=== PATIENT | male | born 1965 | race Caucasian/White ===

== ENCOUNTER → 2017-08-07 15:18 | Outpatient (CLI) | payer BC, SELFPAY ==
--- NOTE | 2017-08-07 15:22 | US_ITS ---
Exam: Limited superficial ultrasound of the abdominal wall. HISTORY: Palpable masses. COMPARISON: None FINDINGS: No definite abnormalities are found in any of the areas of clinical concern. No soft tissue masses. No fluid collections. Grossly normal tissue planes. IMPRESSION: No definite focal abnormality. Electronically Signed: Warren Prajapati MD at 23:48 EDT , Service support , US/Abdomen Limited
== END ==
PROVIDERS: Family Provider Family Medicine; PCP Family Medicine; Visit Provider Family Medicine
DX: R22.2 Localized swelling, mass and lump, trunk (principal)
CPT/HCPCS: 76705

== ENCOUNTER 2017-12-23 15:12 | Emergency (ER) | payer BC, SELFPAY ==
[2017-12-23 15:14] VITALS: BP 173/89; PULSE 90; RESP 18; TEMP 36.8; O2SAT 91; BMI 35.4
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
[2017-12-23 16:14] LABS: Hematocrit 43.9 % (40-54); Hemoglobin 14.2 g/dl (13.0-16.5); Mean Corp Hgb Conc 32.3 g/gl (32-36); Mean Corpuscular Hgb 31.1 pg (27.0-32.0); Mean Corpuscular Volume 96.1 fL (80-94); Mean Platelet Vol. 10.7 fl (6.2-12.0); Platelet Count 217 K/mm3 (150-450); RBC Distribution Width CV 13.2 % (11.6-14.6); RBC Distribution Width SD 45.8 fl (35.1-43.9); Red Blood Count 4.57 M/mm3 (4.6-6.2); White Blood Count 8.1 K/mm3 (4.4-11.0)
[2017-12-23 16:16] LABS: Scan Indicated on CBC? Y/N NO
[2017-12-23 16:24] LABS: Prothrombin Time (Protime)PT. 13.6 SECONDS (11.7-14.9)
[2017-12-23 17:24] VITALS: PULSE 83; RESP 18; O2SAT 95
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
[2017-12-23 18:28] VITALS: BP 176/90; PULSE 82; RESP 19; O2SAT 97
== END 2017-12-23 18:32 | disposition home or self-care (01) ==
PROVIDERS: Emergency Provider Emergency Medicine; Family Provider Family Medicine; PCP Family Medicine
DX: S09.90XA Unspecified injury of head, initial encounter (principal); S16.1XXA Strain of muscle, fascia and tendon at neck level, initial encounter; S39.91XA Unspecified injury of abdomen, initial encounter; R40.2410 Glasgow coma scale score 13-15, unspecified time; N20.0 Calculus of kidney; V44.5XXA Car driver injured in collision with heavy transport vehicle or bus in traffic accident, initial encounter; Y93.9 Activity, unspecified; Y92.9 Unspecified place or not applicable; I25.10 Atherosclerotic heart disease of native coronary artery without angina pectoris; I48.91 Unspecified atrial fibrillation; I10 Essential (primary) hypertension; I25.2 Old myocardial infarction; Z79.899 Other long term (current) drug therapy; Z87.891 Personal history of nicotine dependence
CPT/HCPCS: 70450; 71045; 72125; 74177; 85027; 85610; 99285; Q9967; A4216

== ENCOUNTER → 2018-02-11 15:26 | Outpatient (CLI) | payer BC, SELFPAY ==
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
== END ==
PROVIDERS: Family Provider Family Medicine; PCP Family Medicine; Referring Provider Nurse Practitioner Family; Visit Provider Nurse Practitioner Family
DX: S69.91XS Unspecified injury of right wrist, hand and finger(s), sequela (principal)
CPT/HCPCS: 73130

== ENCOUNTER → 2018-05-13 17:22 | Outpatient (CLI) | payer BC, SELFPAY ==
--- NOTE | 2018-05-13 17:24 | RAD_ITS ---
STUDY: X-RAY - RIGHT HAND REASON FOR EXAM: Male, 52 years old. Injury TECHNIQUE: 3 view(s) of the hand. COMPARISON: None. FINDINGS: Normal radiocarpal articulation. Normal distal radioulnar joint. Normal visualized carpal bones. Normal carpal articulations Normal carpometacarpal articulation of the thumb. Normal second through fifth carpometacarpal joints. Normal metacarpi. There is degenerative arthrosis of the metacarpophalangeal (MCP) joints. Normal interphalangeal joint of the thumb. Normal proximal and distal phalanges of the thumb. Normal metacarpophalangeal joints of the second through fifth fingers. Normal proximal and distal interphalangeal joints of the second through fifth fingers. Normal phalanges of the second through fifth fingers. There is soft tissue swelling of the first digit. RAD/Hand Min 3 Views IMPRESSION: There is NO acute bony injury. 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 There is soft tissue swelling of the first digit. Electronically Signed: Oliver Suarez MD at 6:05 EST , Service support ,
--- OUTSIDE RECORDS SUMMARY | 2018-07-18 12:19 | XMS RPT_ITS ---
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 ( 1269.37 ) mGycm TECHNIQUE: Transaxial images were obtained from the dome of the diaphragm to the symphysis pubis without oral contrast. 100 ml of Isovue 300 contrast was administered. Sagittal and coronal images were reconstructed. Individualized dose optimization techniques were used for this CT. COMPARISON: None. FINDINGS: Mild atelectasis within the dependent portion of the lungs. The visualized portions of the heart are within normal limits. Normal liver. Normal gallbladder and extrahepatic biliary system. Normal spleen. Normal pancreas. Normal bilateral adrenal glands. Tiny nonobstructing calculus in the right kidney. No evidence for hydronephrosis or ureteral calculus. There are 2 small simple cortical cysts in the left kidney. Normal visualized stomach. Normal small intestine. Normal colon. The appendix is visualized and appears normal. Normal abdominal aorta. Normal inferior vena cava. Normal retroperitoneum. Normal urinary bladder. Mild nonspecific prominence of the prostate. Normal abdominal wall. Lumbar spine demonstrates moderate spondylosis CT/Abdomen/Pelvis W IV Cont ONLY IMPRESSION: No acute abnormalities within the abdomen or pelvis Right nephrolithiasis without evidence for hydronephrosis Small left renal cysts Electronically Signed: Lex Reardon MD at 16:42 EDT , Service support , CC: Audi Leung MD; Lex Mott MD Tax Evaluator: Signed ABDOMEN LIMITED Observed: 08/07/2017 Status: F Source: FOREST 3:22 PM [facility] REPOSITORY [facility] Imaging Services [address] [place] [address] Abdomen Limited MR#: [id number] Acct: [id number] Name: ANAND PEREZ Rep #: [id number] : 1965 M 51 From: Warren Prajapati MD PCP: Audi Leung MD Status: REG CLI Study: Abdomen Limited Date of Exam: 08/07/17 Exam# [id number] Ordering Dr: Ashish Ramon MD Exam: Limited superficial ultrasound of the abdominal wall. HISTORY: Palpable masses. COMPARISON: None FINDINGS: No definite abnormalities are found in any of the areas of clinical concern. No soft tissue masses. No fluid collections. Grossly normal tissue planes. IMPRESSION: No definite focal abnormality. Electronically Signed: Warren Prajapati MD at 23:48 EDT , Service support , US/Abdomen Limited CC: Audi Leung MD; Ashish Ramon MD Tax Evaluator: Signed ALLERGIES ALLERGIES DATE TYPE / CODE NAME / CODE REACTION SEVERITY SOURCE 12/23/2017 Drug No Known Unknown [facility] Allergy/416 Allergies/Z79841 Hospital 322746(SNOM 0388(RXNORM) Repository ED CT) Drug NO KNOWN [facility] Class/06956 ALLERGIES [address] [facility] [address] 1003(SNOMED Repository CT) ENCOUNTERS ENCOUNTERS ADMIT/DISCHARGE ACCOUNT ADMITTING ENCOUNTER LOCATION SOURCE NUMBER CLASS 05/13/2018 [id number] Ambulatory [facility] ing:MTRAD Repository 02/11/2018 [id number] Ambulatory [facility] ing:MTRAD Repository 01/14/2018/01/15/20 [id number] Ambulatory [address] Repository 01/14/2018/01/16/20 [id number] Ambulatory [address] Repository 12/23/2017/12/24/19 [id number] Emergency [address] ing:ED Repository 08/07/2017 [id number] Ambulatory [facility] ing:US Repository PAYERS PAYERS ENCOUNTER GUARANTOR PAYER SUBSCRIBER SOURCE 05/13/2018 ANAND Gupta Primary ANAND E [place] [id number] Insurance:ANTHEMPolic WESTPHALDOB: Community CRYSTAL DRLOT y Number: [id number] [id number] Repository [address]Los: (330) Date:9099-62-86AQ [phone] () [id number] [place] [address] 26[address]ST: 05/13/2018 Secondary NOT GIVENUNK [place]ja Insurance:SELF PAY [facility] Number: Effective Repository Date:2018-05-13 02/11/2018 ANAND E Primary ANAND E [place] [id number] Insurance:ANTHEMPolic WESTPHALDOB: Community CRYSTAL DRLOT y Number: [id number] [id number] Repository [address]Rjv: (330) Date:1592-39-18UM [phone] () [id number], [place] [address]JJ: 02/11/2018 Secondary NOT GIVENUNK [place] Insurance:SELF PAY [facility] Number: Effective Repository Date:2018-02-11 12/23/2017 ANAND E Primary ANAND E [place] [id number] Insurance:ANTHEMPolic WESTPHALDOB: Community CRYSTAL DRLOT y Number: [id number] [id number] Repository [address]Pyv: . (HP) Date:[id number] [address], [place] [address]EY: 12/23/2017 Secondary NOT GIVENUNK Katja Insurance:SELF PAY [facility] Number: Effective Repository Date:2017-12-23 08/07/2017 ANAND E Primary ANAND E [place] [id number] Insurance:[facility]: [facility] SWATHI Number: [id number] [id number] Repository [address]Lyc: (330) Date:4033-07-59CU [phone] () [place], [place] [address]YF: 08/07/2017 Secondary NOT GIVENUNK [place] Insurance:SELF PAY [facility] Number: Effective Repository Date:2017-08-06
== END ==
PROVIDERS: Family Provider Family Medicine; PCP Family Medicine; Referring Provider Family Medicine; Visit Provider Family Medicine
DX: S69.91XS Unspecified injury of right wrist, hand and finger(s), sequela (principal)
CPT/HCPCS: 73130

== ENCOUNTER → 2018-05-28 15:52 | Outpatient (CLI) | payer BC, SELFPAY ==
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
== END ==
PROVIDERS: Family Provider Family Medicine; PCP Family Medicine; Referring Provider Family Medicine; Visit Provider Family Medicine
DX: S69.91XS Unspecified injury of right wrist, hand and finger(s), sequela (principal)
CPT/HCPCS: 73218

== ENCOUNTER → 2019-03-09 15:15 | Outpatient (CLI) | payer BC, SELFPAY ==
[2019-03-09 17:57] LABS: Anion Gap 5 (5-15); BUN 14 mg/dL (7-18); BUN/Creat Ratio 16.8 RATIO (10-20); Calcium,Total 8.9 mg/dL (8.5-10.1); Chloride 106 mmol/L (98-107); Cholesterol 148 mg/dL (200); Creatinine, Serum 0.83 mg/dL (0.70-1.30); EST Glomerular Filtration Rate 103 mL/min (>60); Est Glom Filt Rate - Afr Amer 125 mL/min (>60); Glucose 68 mg/dL (74-106); High Density Lipoprotein 58 mg/dL; Potassium 3.7 mmol/L (3.5-5.1); Sodium Level 138 mmol/L (136-145); Thyroid Stim Hormone (TSH) 1.25 uIU/mL (0.358-3.74); Triglycerides 48 mg/dL; Very Low Density Lipoprotein 10 mg/dL (5-40)
== END ==
PROVIDERS: Family Provider Family Medicine; PCP Family Medicine; Referring Provider Family Medicine; Visit Provider Family Medicine
DX: I10 Essential (primary) hypertension (principal); R00.2 Palpitations
CPT/HCPCS: 36415; 80048; 80061; 84443

== ENCOUNTER → 2019-03-22 14:49 | Outpatient (CLI) | payer BC, SELFPAY ==
--- NOTE | 2019-03-22 14:51 | ECHOD_ITS ---
Reason For Study: Murmur Procedure This was a 2D Doppler, Color Flow transthoracic echocardiogram. Exam performed in department. Left Ventricle Normal LV size. Concentric left ventricular hypertrophy. The estimated ejection fraction is 60 %. There is evidence of diastolic dysfunction. No regional wall motion abnormalities noted. Right Ventricle Normal RV size. Normal systolic function. Atria Normal left atrium. Normal right atrium. No doppler evidence for ASD. Mitral Valve Mild mitral valve prolapse, anterior leaflet. There is no mitral valve stenosis. Trivial mitral valve insufficiency. Tricuspid Valve There is no tricuspid stenosis. Trivial tricuspid valve insufficiency. Unable to estimate RV systolic pressure due to insufficient tricuspid regurgitant envelope. Aortic Valve Probably trileaflet aortic valve. Aortic sclerosis, no stenosis. There is no aortic stenosis. Mild (1+) aortic valve insufficiency. Pulmonic Valve There is no pulmonic valvular stenosis. No pulmonic valve insufficiency. MMode/2D Measurements & Calculations LVIDd: 5.0 cm IVSd: 1.6 cm LVOT diam: 2.2 cm LVIDs: 2.8 cm LVPWd: 1.7 cm LVOT area: 3.9 cm2 RVDd: 3.9 cm FS: 45.1 % Ao root diam: 3.8 cm LAV(MOD-bp): 84.1 ml LA A4 area: 24.3 cm2 LAV(MOD-bp) Indexed: 35.6 ml/m2 LAV(MOD-sp2): 81.4 ml LAV(MOD-sp4): 77.0 ml RA A4 area: 20.7 cm2 Time Measurements MV dec time: 0.20 sec Doppler Measurements & Calculations MV E max afshin: 97.0 cm/sec Lat Peak E' Afshin: 8.3 cm/sec Med Peak E' Afshin: 7.7 cm/sec MV A max afshin: 59.8 cm/sec E/E' lat: 11.7 E/E' med: 12.5 MV E/A: 1.6 MV V2 max: 101.2 cm/sec MV P1/2t max afshin: 101.2 cm/sec Ao V2 max: 254.7 cm/sec MV max P.1 mmHg MV P1/2t: 88.8 msec Ao max P.9 mmHg MV V2 mean: 47.2 cm/sec Ao V2 mean: 158.0 cm/sec MV mean P.1 mmHg MV dec slope: 333.7 cm/sec2 Ao mean P.0 mmHg MV V2 VTI: 31.9 cm MVA(P1/2t): 2.5 cm2 Ao V2 VTI: 52.7 cm MVA(VTI): 3.9 cm2 ALANNAH(I,D): 2.3 cm2 ALANNAH(V,D): 2.0 cm2 AI max afshin: 394.8 cm/sec LV V1 max: 132.0 cm/sec SV(LVOT): 123.2 ml AI max P.4 mmHg LV V1 max P.0 mmHg LV V1 mean P.2 mmHg AI dec slope: 162.8 cm/sec2 LV V1 mean: 81.5 cm/sec AI P1/2t: 710.3 msec LV V1 VTI: 32.0 cm PA V2 max: 113.6 cm/sec Interpretation Summary The estimated ejection fraction is 60 %. There is evidence of diastolic dysfunction. Mild mitral valve prolapse, anterior leaflet Trivial mitral valve insufficiency. Trivial tricuspid valve insufficiency. Aortic sclerosis, no stenosis. Mild (1+) aortic valve insufficiency. Ordering Physician: Wilmer Leung Referring Physician: Wilmer Leung Performed By: Steve Harris RCS
== END ==
PROVIDERS: Family Provider Family Medicine; PCP Family Medicine; Referring Provider Family Medicine; Visit Provider Family Medicine
DX: R06.00 Dyspnea, unspecified (principal); R01.1 Cardiac murmur, unspecified
CPT/HCPCS: 93306

== ENCOUNTER → 2019-03-30 11:31 | Outpatient (CLI) | payer BC, SELFPAY ==
--- NOTE | 2019-03-30 19:14 | STRESSREP ---
Stress Test Report Treadmill EKG report: Resting EKG: Atrial fibrillation with controlled ventricular response, no evidence of previous myocardial infarction. Treadmill EKG: The patient exercised according to Ash protocol for 6 minutes and 0 seconds achieving a maximum workload of 7.00 METS. Resting heart rate was initially 85 beats a minute and angely to maximum 157 bpm which represents 93% of the maximal age picked at heart rate. Resting blood pressure was 112/60, and angely to max of 178/50. Test was terminated due to dyspnea and bilateral leg pain. During exercise the patient's heart rate increased as expected. The patient had no dynamic EKG changes to suggest ischemia. Patient had rare PVC noted during exercise. Conclusions normal, adequate, treadmill EKG: Negative for inducible ischemia. No anginal symptoms noted. Rare PVC noted. Appropriate blood pressure response to exercise. Average exercise capacity for age. Patient tolerated the procedure well. No complication.
== END ==
PROVIDERS: Family Provider Family Medicine; PCP Family Medicine; Referring Provider Family Medicine; Visit Provider Family Medicine
DX: R06.00 Dyspnea, unspecified (principal)
CPT/HCPCS: 93017

== ENCOUNTER 2019-08-13 20:30 | Emergency (ER) | payer BC, SELFPAY ==
[2019-08-13 20:31] VITALS: BP 157/71; PULSE 76; RESP 15; TEMP 36.5; O2SAT 97; BMI 35.2
--- NOTE | 2019-08-13 20:59 | ED.VIS.GEN ---
History of Present Illness Chief Complaint: Dental Narrative: 53-year-old male presents with 2 days of left mandibular second molar pain. He broke the tooth approximately 6 months ago while eating but he did not have pain until 3 days ago. It started gradually. It is worse with chewing. No associated fever or facial swelling. Mild severity. Past Medical History - Allergies and Home Meds Allergies/Adverse Reactions: Allergies No Known Allergies Allergy (Verified 08/13/19 20:33) Primary Care Physician: Wilmer Leung MD [Primary Care Provider] - Prior records reviewed: Yes Smoking Status: Never smoker Review of Systems General: Denies: Chills, Fever, Sweats Eyes: Denies: Visual changes - bilaterally, Diplopia ENT: Reports: - - dental pain. Denies: Rhinorrhea, Sore throat Cardiovascular: Denies: Chest pain, Palpitations Respiratory: Denies: Dyspnea, Cough, Dyspnea on exertion Gastrointestinal: Denies: Abdominal pain, Nausea, Vomiting, Diarrhea, Melena, Hematochezia Genitourinary: Denies: Dysuria, Hematuria, Frequency Musculoskeletal: Denies: Back pain, Extremity Pain Skin: Denies: Rash, Wounds Neurological: Denies: Headache, Weakness, Numbness Physical Exam Vital Signs/Narrative: Vital Signs Temp Pulse Resp BP Pulse Ox 08/13/19 20:31 97.7 F L 76 15 157/71 H 97 Inital Vital Signs reviewed: Yes General: Well nourished, Well developed, No Acute Distress Head: Normocephalic, Atraumatic Eyes: Perrl, EOMI ENT: Moist mucous membranes, No rhinorrhea, - - mild ttp left mandibular second molar, no trismus, no abscess, submandibular tissues are soft. Voice normal. Neck: Supple, Nontender Cardiovascular: Regular rate, Regular rhythm, No murmurs Respiratory: No distress, CTA bilaterally, Chest nontender Abdomen: Soft, Nontender, Nondistended, Normal bowel sounds Back: Nontender, Normal Inspection Extremities: Nontender, No edema Skin: Normal color, No rash Neurological: Alert, Oriented x3, Cranial nerves II-XII grossly intact, Normal Strength, Normal Sensation Psychological: Normal affect, Normal Mood Diagnostic/Tx/Re-eval - Medical Decision Making Looks well. Not in distress. No evidence of deep space infection. I will treat his pain with naproxen and treat him with oral penicillin. He will see his dentist early next week. ED Disposition - Plan for ED Patient: Disposition: Home or Assisted Living Diagnosis: Dental infection Instructions: ED Tooth Pain Prescriptions: Naproxen [Naprosyn] 500 mg PO BID PRN #20 tablet Penicillin V Potassium 500 mg PO 4X/DAY #40 tablet Referrals: Wilmer Leung MD [Primary Care Provider] -
[2019-08-13] MEDS: Penicillin Vk 250 MG Tablet 500 MG PO (21:18)
== END 2019-08-13 21:21 | disposition home or self-care (01) ==
LOC: ED 21:14
PROVIDERS: Emergency Provider Emergency Medicine; PCP Family Medicine
DX: K04.7 Periapical abscess without sinus (principal)
CPT/HCPCS: 99283

== ENCOUNTER → 2020-05-31 14:56 | Outpatient (CLI) | payer BC, SELFPAY ==
[2020-05-31 17:57] LABS: ALB/GLOB Ratio 1.4 RATIO (0.9-2.4); AST(SGOT) 22 U/L (15-37); Alanine Aminotransfer ALT/SGPT 28 U/L (16-61); Albumin, Serum 4.1 g/dL (3.2-5.0); Alkaline Phosphatase 81 U/L (45-117); Anion Gap 8 (5-15); BUN 22 mg/dL (7-18); Calcium,Total 9.1 mg/dL (8.5-10.1); Chloride 103 mmol/L (98-107); Cholesterol 157 mg/dL (200); Creatinine, Serum 1.05 mg/dL (0.70-1.30); EST Glomerular Filtration Rate 78 mL/min (>60); Est Glom Filt Rate - Afr Amer 95 mL/min (>60); Glucose 70 mg/dL (74-106); High Density Lipoprotein 54 mg/dL; Potassium 3.9 mmol/L (3.5-5.1); Protein, Total 7.1 g/dL (6.4-8.2); Sodium Level 137 mmol/L (136-145); Triglycerides 78 mg/dL; Very Low Density Lipoprotein 16 mg/dL (5-40)
== END ==
PROVIDERS: PCP Family Medicine; Referring Provider Family Medicine; Visit Provider Family Medicine
DX: I10 Essential (primary) hypertension (principal); Z12.5 Encounter for screening for malignant neoplasm of prostate
CPT/HCPCS: 36415; 80053; 80061; 84153; G0103

== ENCOUNTER → 2020-06-05 12:57 | Outpatient (CLI) | payer BC, SELFPAY ==
--- NOTE | 2020-06-05 13:00 | ECHOD_ITS ---
Reason For Study: MURMUR Procedure This was a 2D Doppler, Color Flow transthoracic echocardiogram. Exam performed in department. Left Ventricle Normal LV size. Left ventricular systolic function is normal. The estimated ejection fraction is 60 %. Unable to assess diastolic dysfunction. No regional wall motion abnormalities noted. Right Ventricle Normal RV size. Normal systolic function. Atria The left atrium is mildly enlarged. Normal right atrium. No doppler evidence for ASD. Mitral Valve There is no mitral annular calcification. Mild diffuse mitral valve thickening. Equivocal mitral valve prolapse. Mild (1+) mitral valve insufficiency. Tricuspid Valve Normal tricuspid valve. Trivial tricuspid valve insufficiency. Right ventricular systolic pressure estimated to be 24 mmHg. Aortic Valve The aortic valve leaflets are not well visualized, however, based upon the 2D echocardiographic images obtained there appears to be findings compatible with a bicuspid aortic valve with a fused/calcified raphae. Mild aortic stenosis. Mild (1+) aortic valve insufficiency. Pulmonic Valve The pulmonic valve is not well visualized. Trivial pulmonic valve insufficiency. Great Vessels Normal sized aortic root. Pericardium/Pleural No pericardial effusion. MMode/2D Measurements & Calculations LVIDd: 4.8 cm IVSd: 1.2 cm LVOT diam: 2.3 cm LVIDs: 3.2 cm LVPWd: 1.2 cm LVOT area: 4.2 cm2 RVDd: 3.4 cm FS: 32.5 % Ao root diam: 3.4 cm LAV(MOD-bp): 69.4 ml LVAd ap4: 43.0 cm2 LAV(MOD-bp) Indexed: 29.6 ml/m2 EDV(MOD-sp4): 168.9 ml LAV(MOD-sp2): 64.8 ml EDV(sp4-el): 179.2 ml LAV(MOD-sp4): 75.8 ml LVAs ap4: 26.6 cm2 ESV(MOD-sp4): 75.3 ml ESV(sp4-el): 74.6 ml EF(MOD-sp4): 55.4 % EF(sp4-el): 58.4 % SV(MOD-sp4): 93.6 ml SV(sp4-el): 104.7 ml LA A4 area: 23.2 cm2 LA dimension(2D): 3.9 cm RA A4 area: 19.1 cm2 Doppler Measurements & Calculations MV E max ami: 109.9 cm/sec Ao V2 max: 252.9 cm/sec AI max ami: 445.5 cm/sec Ao max P.8 mmHg AI max P.5 mmHg Ao V2 mean: 183.4 cm/sec Ao mean P.0 mmHg AI dec slope: 355.4 cm/sec2 Ao V2 VTI: 48.7 cm AI P1/2t: 367.2 msec ALANNAH(I,D): 2.1 cm2 ALANNAH(V,D): 1.8 cm2 LV V1 max: 111.8 cm/sec SV(LVOT): 101.2 ml PA V2 max: 118.1 cm/sec LV V1 max P.0 mmHg LV V1 mean P.7 mmHg LV V1 mean: 75.2 cm/sec LV V1 VTI: 24.2 cm TR max ami: 228.7 cm/sec TR max P.9 mmHg Interpretation Summary Left ventricular systolic function is normal. The estimated ejection fraction is 60 %. The left atrium is mildly enlarged. Mild diffuse mitral valve thickening. Equivocal mitral valve prolapse. Mild (1+) mitral valve insufficiency. Trivial tricuspid valve insufficiency. The aortic valve leaflets are not well visualized, however, based upon the 2D echocardiographic images obtained there appears to be findings compatible with a bicuspid aortic valve with a fused/calcified raphae. Mild aortic stenosis. Mild (1+) aortic valve insufficiency. Trivial pulmonic valve insufficiency. Right ventricular systolic pressure estimated to be 24 mmHg. Unable to assess diastolic dysfunction. Ordering Physician: Wilmer Bateman Referring Physician: CHADD BATEMAN Performed By: Zulma Anderson RDCS
== END ==
PROVIDERS: PCP Family Medicine; Visit Provider Family Medicine
DX: R01.1 Cardiac murmur, unspecified (principal)
CPT/HCPCS: 93306

== ENCOUNTER 2020-07-25 08:08 | Emergency (ER) | payer BC, SELFPAY ==
[2020-07-25 08:10] VITALS: BP 165/85; PULSE 92; RESP 18; TEMP 36.6; O2SAT 98; BMI 38.3
--- NOTE | 2020-07-25 08:12 | EKG12_ITS ---
Test Reason : CHEST PAIN Blood Pressure : / mmHG Vent. Rate : 107 BPM Atrial Rate : 085 BPM P-R Int : 000 ms QRS Dur : 080 ms QT Int : 324 ms P-R-T Axes : 000 -26 042 degrees QTc Int : 432 ms Atrial fibrillation with rapid ventricular response with premature ventricular or aberrantly conducte d complexes Abnormal ECG Confirmed by CRISTIAN ALVARADO, SAULO ([id number]), design editor ZARA CARRANZA ([id number]) on 08/01/2020 8:20:04 AM Referred By: RICHARD Confirmed By:SAULO FOSTER MD
--- NOTE | 2020-07-25 08:17 | NURSING ---
NO OLD EKGS
[2020-07-25 08:25] LABS: Absolute Lymphocyte Count 1.83 X10^3/uL (0.83-4.51); Absolute Neutrophil Count 5.5 X10^3/uL (2.0-7.7); Basophil# 0.03 X10^3/uL; Basophil% 0.4 % (0-1); Eosinophil# 0.09 X10^3/uL; Eosinophils% 1.1 % (0-5); Hematocrit 44.4 % (40-54); Hemoglobin 14.5 g/dL (13.0-16.5); Lymphocyte # 1.83 X10^3/ul (4.0); Lymphocyte % 22.6 % (19-41); Mean Corp Hgb Conc 32.7 g/dL (32-36); Mean Corpuscular Hgb 31.3 pg (27.0-32.0); Mean Corpuscular Volume 95.7 fL (80-94); Mean Platelet Vol. 9.9 fl (6.2-12.0); Monocyte# 0.63 X10^3/uL; Monocyte% 7.8 % (0-10); NRBC Flagged by Analyzer 0 % (0-5); Neutrophil % 67.7 % (47-70); Platelet Count 235 K/mm3 (150-450); RBC Distribution Width CV 12.7 % (11.6-14.6); RBC Distribution Width SD 45.1 fl (35.1-43.9); Red Blood Count 4.64 M/mm3 (4.6-6.2); White Blood Count 8.1 K/mm3 (4.4-11.0)
--- NOTE | 2020-07-25 08:40 | RAD_ITS ---
STUDY: X-RAY CHEST REASON FOR EXAM: Male, 54 years old. Chest pain TECHNIQUE: Single AP portable view of the chest. COMPARISON: Comparison is made with prior study dated 12/23/2017. FINDINGS: The lungs are clear and expanded. There is no demonstrated pleural abnormality. Normal size heart. Normal mediastinum and deanna. Normal visualized pulmonary arteries. There is atherosclerotic tortuosity of the aortic arch and descending thoracic aorta. There are diffuse degenerative changes of the visualized thoracic spine. Normal visualized ribs, clavicles, and shoulders. There is no demonstrated abnormality of the visualized soft tissue structures of the upper abdomen. RAD/Chest 1 View (Portable) IMPRESSION: Normal x-ray examination of the chest. Electronically Signed: Holger Chan MD at 9:20 EDT , Service support ,
[2020-07-25 08:49] LABS: Anion Gap 2 (5-15); BUN 18 mg/dL (7-18); BUN/Creat Ratio 21.7 RATIO (10-20); Calcium,Total 8.7 mg/dL (8.5-10.1); Chloride 105 mmol/L (98-107); Creatinine, Serum 0.83 mg/dL (0.70-1.30); EST Glomerular Filtration Rate 103 mL/min (>60); Est Glom Filt Rate - Afr Amer 124 mL/min (>60); Estimated Creatinine Clearance 109.62 ml/min; Glucose 90 mg/dL (74-106); Potassium 3.6 mmol/L (3.5-5.1); Sodium Level 137 mmol/L (136-145); Thyroid Stim Hormone (TSH) 1.21 uIU/mL (0.358-3.74)
[2020-07-25] MEDS: Aspirin 81 MG TAB.CHEW 324 MG PO (09:07)
[2020-07-25] MEDS: Acetaminophen 500 MG Tablet 1000 MG PO (09:07)
[2020-07-25 09:08] VITALS: BP 144/91; PULSE 101; RESP 16; O2SAT 96
[2020-07-25] MEDS: 0.9% Normal Saline 1,000 ML 150 ML IV (09:10)
[2020-07-25] MEDS: Metoprolol Tartrate 5 MG/5 ML Vial IV (09:10)
--- NOTE | 2020-07-25 09:52 | EKG12_ITS ---
Test Reason : REPEAT Blood Pressure : / mmHG Vent. Rate : 071 BPM Atrial Rate : 054 BPM P-R Int : 000 ms QRS Dur : 084 ms QT Int : 428 ms P-R-T Axes : 000 -24 024 degrees QTc Int : 465 ms Atrial fibrillation Abnormal ECG Confirmed by CRISTIAN ALVARADO, SAULO ([id number]), editor newspaper LIANE DECKER ([id number]) on 07/27/2020 12:41:32 PM Referred By: RICHARD Confirmed By:SAULO FOSTER MD
[2020-07-25 10:06] VITALS: BP 155/82; PULSE 94; RESP 14; O2SAT 98
--- NOTE | 2020-07-25 12:04 | ED.DCSUM_ITS ---
- ER Visit Summary Date of Service: 07/25/20 Chief Complaint: Chest pain History of Present Illness: The patient is a [address] Hilliard. 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 He reports he has a history of atrial fibrillation but is not anticoagulated. He also reports that he has a history of PR at 46 years of age. However, he has never had a heart catheterization. States he had a stress test approximately 1 month ago that was negative. Patient reports that he has a left-sided chest pain that began at 715 this morning while undergoing light activity. The sharp pain is 10 of 10 worsening to 10 currently. Is worsened by nothing including exertion, breathing, or movement. Is relieved by walking around. Denies nausea or vomiting. Does report that he is diaphoretic and a little bit short of breath. Physical Examination: Vitals: Stable. Afebrile. General: Well-nourished and well-developed. Head: Normocephalic atraumatic. Neck: Supple, no lymphadenopathy. No JVD. Nontender. Cardiovascular: Irregularly irregular rhythm with a 2 out of 6 systolic murmur. Respiratory: No respiratory distress. Clear to auscultation bilaterally. Abdominal: Soft, nontender, nondistended, normal bowel sounds. No guarding, rebound, or peritoneal signs. Back: Nontender. Extremities: Nontender, no edema. Skin: Normal color, no rash. Neurologic: Alert and oriented ?3. Cranial nerves II through XII are intact. Normal strength and sensation. Psych: Normal affect. Test Results: EKG is A. fib at [address] changes. There is no old EKG for comparison. Repeat EKG is unchanged. Troponin is negative. Repeat troponin is negative. Chem-7 is normal. CBC is normal. TSH is 1.21. Clinical Impression(s) from Imaging Studies Chest X-Ray 07/25/20 08:40 IMPRESSION: Normal x-ray examination of the chest. Electronically Signed: Holger Chan MD at 9:20 EDT , Service support , Emergency Department Course and Treatment: Patient is resting comfortably. He was given aspirin and Tylenol p.o. He was given 5 mg of Lopressor IV. His heart rate is now in the 70s. Treatment Plan: Patient's pain is very atypical. He has a heart score of 3. He reports longstanding atrial fibrillation and this was present on the stress test in 2019. I do not feel that putting him is on an anticoagulant at this time is in his best interest. I suspect there is a reason that his primary care physician does not have him on an anticoagulant. He will be discharged with i nstructions to follow-up his primary care physician 1 to 2 days for another exam. Return to the emergency department for any worsening symptoms. Disposition: To home in improved and stable condition. Impression: 1. Atrial fibrillation. 2. Atypical chest pain. 3. Heart score of 3. This note was generated with [employer] dictation software. It may contain incorrect words, spelling, and punctuation that were not noted in review of the chart prior to signing ED Disposition - Plan for ED Patient: Instructions: ED Chest Pain, Uncertain Cause Referrals: Wilmer Leung MD [Primary Care Provider] - 2 Days
[2020-07-25 12:21] VITALS: BP 109/65; PULSE 83; RESP 16; O2SAT 97
== END 2020-07-25 12:24 | disposition home or self-care (01) ==
LOC: ED 08:27
PROVIDERS: Emergency Provider Emergency Medicine; PCP Family Medicine
DX: I48.91 Unspecified atrial fibrillation (principal); I10 Essential (primary) hypertension; I25.2 Old myocardial infarction; I25.10 Atherosclerotic heart disease of native coronary artery without angina pectoris; Z79.899 Other long term (current) drug therapy
CPT/HCPCS: 71045; 80048; 83735; 84443; 84484; 85025; 93005; 96361; 96374; 99284; J7030; A4216

== ENCOUNTER 2021-07-16 15:44 | Outpatient (CLI) | payer BC, SELFPAY ==
[2021-07-16 18:10] LABS: Anion Gap 6 (5-15); BUN 16 mg/dL (7-18); BUN/Creat Ratio 18.3 RATIO (10-20); Chloride 105 mmol/L (98-107); Cholesterol 172 mg/dL (200); Creatinine, Serum 0.87 mg/dL (0.70-1.30); EST Glomerular Filtration Rate 97 mL/min (>60); Est Glom Filt Rate - Afr Amer 117 mL/min (>60); Glucose 88 mg/dL (74-106); High Density Lipoprotein 52 mg/dL; Magnesium 2.2 mg/dL (1.6-2.6); PSA,Total - Annual Screen 1.13 ng/mL (0.00-4.00); Potassium 3.7 mmol/L (3.5-5.1); Sodium Level 137 mmol/L (136-145); Thyroid Stim Hormone (TSH) 1.28 uIU/mL (0.358-3.74); Triglycerides 69 mg/dL; Very Low Density Lipoprotein 14 mg/dL (5-40)
== END 2021-07-16 23:59 | disposition home or self-care (01) ==
LOC: MFPLAB 15:45
PROVIDERS: PCP Family Medicine; Referring Provider Family Medicine; Visit Provider Family Medicine
DX: I48.91 Unspecified atrial fibrillation (principal); I10 Essential (primary) hypertension; Z12.5 Encounter for screening for malignant neoplasm of prostate
CPT/HCPCS: 36415; 80048; 80061; 83735; 84153; 84443; G0103

== ENCOUNTER → 2022-05-19 | Outpatient (CLI) | payer BC, SELFPAY ==
--- NOTE | 2022-05-19 16:08 | RAD_ITS ---
INDICATION: R side supraclavicular junction pain EXAMINATION/TECHNIQUE: X-RAY - XR Sternoclavicular Joint(s) Min 3 Views 3 VIEWS COMPARISON: Chest x-ray 07/25/2020 FINDINGS: SOFT TISSUES: No soft tissue swelling or gas. No radiopaque foreign body. BONES/JOINTS: No acute fracture. Included joint spaces anatomically maintained. No sclerotic or destructive changes observed. RAD/S-C Jts Min 3 Views IMPRESSION: No acute bony abnormality. Electronically Signed: Chele Lauren MD at 21:40 EST ,
== END | disposition home or self-care (01) ==
LOC: MTRAD 16:06
PROVIDERS: PCP Family Medicine; Referring Provider Family Medicine; Visit Provider Family Medicine
DX: M25.511 Pain in right shoulder (principal)
CPT/HCPCS: 71130

== ENCOUNTER → 2022-07-17 | Outpatient (CLI) | payer BC, SELFPAY ==
[2022-07-17 19:10] LABS: ALB/GLOB Ratio 1.1 RATIO (0.9-2.4); AST(SGOT) 19 U/L (15-37); Alanine Aminotransfer ALT/SGPT 28 U/L (16-61); Albumin, Serum 3.9 g/dL (3.2-5.0); Alkaline Phosphatase 71 U/L (45-117); Anion Gap 8 (5-15); BUN 22 mg/dL (7-18); BUN/Creat Ratio 24.2 RATIO (10-20); Calcium,Total 9.3 mg/dL (8.5-10.1); Chloride 105 mmol/L (98-107); Cholesterol 151 mg/dL (200); Creatinine, Serum 0.91 mg/dL (0.70-1.30); EST Glomerular Filtration Rate 92 mL/min (>60); Est Glom Filt Rate - Afr Amer 111 mL/min (>60); Globulin 3.4 g/dL (2.2-4.2); Glucose 68 mg/dL (74-106); High Density Lipoprotein 56 mg/dL; PSA,Total - Annual Screen 1.16 ng/mL (0.00-4.00); Potassium 3.8 mmol/L (3.5-5.1); Protein, Total 7.3 g/dL (6.4-8.2); Sodium Level 140 mmol/L (136-145); Thyroid Stim Hormone (TSH) 1.73 uIU/mL (0.358-3.74); Triglycerides 49 mg/dL; Very Low Density Lipoprotein 10 mg/dL (5-40)
== END | disposition home or self-care (01) ==
LOC: MFPLAB 16:11
PROVIDERS: PCP Family Medicine; Referring Provider Family Medicine; Visit Provider Family Medicine
DX: I10 Essential (primary) hypertension (principal); I48.91 Unspecified atrial fibrillation; Z12.5 Encounter for screening for malignant neoplasm of prostate
CPT/HCPCS: 36415; 80053; 80061; 83735; 84153; 84443; G0103

== ENCOUNTER → 2022-09-17 | Outpatient (CLI) | payer OTHER, SELFPAY ==
--- NOTE | 2022-09-17 15:02 | ECHOD_ITS ---
Version 2 Reason For Study: A-FIB Procedure This was a 2D Doppler, Color Flow transthoracic echocardiogram. The study was technically difficult. Due to arrhythmia and body habitus. Exam performed in department. Left Ventricle Normal LV size. Mild concentric left ventricular hypertrophy. Left ventricular systolic function is normal. The estimated ejection fraction is 60 %. No regional wall motion abnormalities noted. Right Ventricle Normal RV size. Normal systolic function. Atria Normal left atrium. Normal right atrium. Mitral Valve Normal mitral valve. Tricuspid Valve Normal tricuspid valve. Aortic Valve Mild focal aortic valve calcification. Cannot completely exclude a bicuspid valve. Mild aortic stenosis. Pulmonic Valve Normal pulmonic valve. Great Vessels Mildly dilated aortic root. The pulmonary artery is normal size. Normal inferior vena cava. Pericardium/Pleural No pericardial effusion. MMode/2D Measurements & Calculations LVIDd: 5.4 cm IVSd: 1.3 cm LVOT diam: 2.3 cm LVIDs: 3.8 cm LVPWd: 1.3 cm LVOT area: 4.2 cm2 RVDd: 2.9 cm FS: 28.3 % Ao root diam: 3.7 cm LAV(MOD-bp): 61.7 ml LVAd ap4: 41.2 cm2 LAV(MOD-bp) Indexed: 26.3 ml/m2 LVLd ap4: 9.0 cm LAV(MOD-sp2): 59.6 ml EDV(MOD-sp4): 153.8 ml LAV(MOD-sp4): 59.7 ml EDV(sp4-el): 160.7 ml LVAs ap4: 30.4 cm2 LVLs ap4: 8.5 cm ESV(MOD-sp4): 88.8 ml ESV(sp4-el): 92.6 ml EF(MOD-sp4): 42.3 % EF(sp4-el): 42.4 % LVAd ap2: 37.1 cm2 SV(MOD-sp4): 65.0 ml SV(MOD-sp2): 56.2 ml LVLd ap2: 8.9 cm EDV(MOD-sp2): 132.9 ml EDV(sp2-el): 132.1 ml LVAs ap2: 26.5 cm2 LVLs ap2: 7.8 cm ESV(MOD-sp2): 76.7 ml ESV(sp2-el): 76.4 ml EF(MOD-sp2): 42.3 % SV(sp4-el): 68.1 ml LA dimension(2D): 4.5 cm LA A4 area: 19.9 cm2 RA A4 area: 17.0 cm2 Doppler Measurements & Calculations MV E max afshin: 105.5 cm/sec Lat Peak E' Afshin: 12.0 cm/sec Med Peak E' Afshin: 11.3 cm/sec E/E' lat: 8.8 E/E' med: 9.3 Ao V2 max: 268.6 cm/sec LV V1 max: 117.8 cm/sec SV(LVOT): 84.5 ml Ao max P.4 mmHg LV V1 max P.6 mmHg Ao V2 mean: 189.4 cm/sec LV V1 mean P.5 mmHg Ao mean P.7 mmHg LV V1 mean: 88.1 cm/sec Ao V2 VTI: 45.9 cm LV V1 VTI: 20.2 cm AV (velocity ratio): 0.44 ALANNAH(I,D): 1.8 cm2 ALANNAH(V,D): 1.8 cm2 PA V2 max: 106.5 cm/sec PA V2 mean: 77.1 cm/sec ECHO/Echo Complete Interpretation Summary Normal LV size. Mild concentric left ventricular hypertrophy. Left ventricular systolic function is normal. The estimated ejection fraction is 60 %. Mildly dilated aortic root. Mild focal aortic valve calcification. Mild aortic stenosis. Cannot completely exclude a bicuspid valve Ordering Physician: Audi Leung Referring Physician: Audi Leung Performed By: Amarilis Cardoza, HENRY, RVT
== END | disposition home or self-care (01) ==
LOC: CVS 15:00
PROVIDERS: PCP Family Medicine; Referring Provider Family Medicine; Visit Provider Family Medicine
DX: I48.91 Unspecified atrial fibrillation (principal); I35.0 Nonrheumatic aortic (valve) stenosis
CPT/HCPCS: 93306

== ENCOUNTER → 2023-05-28 | Outpatient (CLI) | payer OTHER, SELFPAY ==
[2023-05-28 14:02] LABS: BUN 28 mg/dL (7-18); Creatinine, Serum 0.98 mg/dL (0.70-1.30); EST Glomerular Filtration Rate 83 mL/min (>60); Est Glom Filt Rate - Afr Amer 101 mL/min (>60)
--- OUTSIDE RECORDS SUMMARY | 2023-05-28 15:00 | XMS RPT_ITS | CCD ---
Author Name Unknown Address [address] [place] [address] Organization [facility] Care Team Providers Care Telegraph Repeater Technician Name Role Phone Audi Leung MD Primary Care Provider Medications Current Medications Medication Drug Class(es) Dates Sig (Normalized) Sig (Original) lidocaine 0.05 mg/mg medicated patch (2 sources) Antiarrhythmic, Amide Local Anesthetic Start: 11-01-2021 End: 11-11-2021 apply 1 dose transdermal route every twenty-four hours lidocaine (LIDODERM) 5 % Apply 1 Patch as directed every 24 hours for 10 days. Remove old patch prior to placing new patch. Location: right forearm 10 Patch 0 11/01/2021 11/11/2021 Active Completed/Discontinued Medications Medication Drug Class(es) Dates Sig (Normalized) Sig (Original) atenolol 100 mg / chlorthalidone 25 mg oral tablet (2 sources) Thiazide-like Diuretic, beta-Adrenergic [place] take 1 tablet by mouth once daily Atenolol-Chlorthal idone (TENORETIC 100) 100-25 mg per tablet Take 1 tablet by mouth once daily. 0 Active Problems Active Problems Problem Classification Problem Date Documented Da te Episodic/Chronic Residual codes; unclassified (1 source) Pain; Translations: [Pain, unspecified] Episodic Past or Other Problems Problem Classification Problem Date Documented Da te Episodic/Chronic Other non-traumatic joint disorders (2 sources) Shoulder joint pain; Translations: [Pain in unspecified shoulder] Onset: 07-29-2011 07-29-2011 Episodic Other non-traumatic joint disorders (2 sources) Shoulder stiff; Translations: [Stiffness of unspecified shoulder, not elsewhere classified] Onset: 07-29-2011 07-29-2011 Episodic Results Test Name Value Interpretation Reference Range Facil ity Vital Signs Date Time Vital Sign Value Performing Clinician Ag flores 11-01-2021 11:54-0400 Body temperature 96.49 [degF] Jada Vu APRN.INTERNATIONAL MARKETING COORDINATOR Work Phone: [facility] 11-01-2021 11:54-0400 Body weight 130.27 kg Jada Vu APRN.INTERNATIONAL MARKETING COORDINATOR Work Phone: [facility] 11-01-2021 11:54-0400 Diastolic blood pressure 88 mm[Hg] Jada Vu APRN.INTERNATIONAL MARKETING COORDINATOR Work Phone: [facility] 11-01-2021 11:54-0400 Heart rate 85 /min Jada Vu APRN.INTERNATIONAL MARKETING COORDINATOR Work Phone: [facility] 11-01-2021 11:54-0400 Respiratory rate 21 /min Jada Vu APRN.INTERNATIONAL MARKETING COORDINATOR Work Phone: [facility] 11-01-2021 11:54-0400 SaO2% (BldA) [Mass fraction] 100 % Jada Vu APRN.INTERNATIONAL MARKETING COORDINATOR Work Phone: [facility] 11-01-2021 11:54-0400 Systolic blood pressure 152 mm[Hg] Jada Vu APRN.INTERNATIONAL MARKETING COORDINATOR Work Phone: [facility] Encounters Encounter Date Encounter Type Care Provider Facility Start: 11-05-2021 Telephone encounter [facility] Plan of Treatment Date Care Activity Detail Author Start: 12-26-2021 Influenza vaccination INFLUENZA (#1) [facility] Start: 2021 PROSTATE CANCER SCRE ENING DISCUSSION PROSTATE CANCER SCREENING DISCUSSION [facility] Start: 05-20-2018 LIPID SCREEN LIPID SCREEN [facility] Start: 06-07-2017 DIABETES SCREEN DIABETES SCREEN [facility] Start: 2016 SHINGRIX VACCINE (1 of 2) SHINGRIX V ACCINE (1 of 2) [facility] Start: 08-19-2011 COLOGUARD (FIT-DNA) COLOGUARD (FIT-D NA) [facility] Start: 08-19-2011 Colonoscopy COLONOSCOPY [facility] Start: 08-19-2011 COLORECTAL CANCER SCREENING COLORECTAL CANCER SCREENING [facility] Start: 08-19-[address] COLONOGRAPHY [facility] Start: 08-19-2011 FECAL OCCULT BLOOD FECAL OCCULT BLOO D [facility] Start: 08-19-2011 SIGMOIDOSCOPY SIGMOIDOSCOPY [facility] Start: 1985 Urine microalbumin profile DTAP,TDAP ,TD (1 - Tdap) [facility] Start: 1984 HEPATITIS C SCREENING HEPATITIS C SC REENING [facility] Start: 1984 HIV SCREENING HIV SCREENING [facility] Start: 1978 Adult depression scr eening assessment DEPRESSION SCREENING [facility] Payers Date Payer Category Payer Unknown [employer] PPO [id number] 2019-Present [phone] [address] [place] [address] PPO [id number] Social History Date Type Detail Facility Start: 11-12-[address] [facility] Never smoked tobacco [facility] Start: 11-12-2012 Tobacco use and exposure User of smo keless tobacco [facility] History of tobacco use Chews Tobacco [facility] Start: 11-01-2021 Alcohol intake Current non-dr parakeet raiser of alcohol (finding) [facility] Start: 1965 Sex Assigned At Not on file [facility] Start: 10-22-2021 End: 11-01-2021 Exposure to SARS-CoV-2 (event) Not sure [facility] Note 11-05-2021 Telephone Encounter - Olivia Perkins RN - 11/05/2021 11:14 AM EDT Note Date & Type Note Facility 11-05-2021 Miscellaneous Notes Pts father called in reports he is Pts POA. He wants to know what went on during Pts visit. He states Pt has an appointment that was made in [place], he wants Pt to have an appointment local. Called [facility] and they will call back. documented in this encounter [facility] Progress note 11-01-2021 Note Date & Type Note Facility 11-01-2021 Note HNO ID: [id number] Author: RT Paulino(R) Service: Radiology Author Type: Technologist Type: Progress Notes Filed: 11/01/2021 12:55 PM Note Text: Radiology Service Progress Note PATIENT NAME: Anand Nicholson DATE OF SERVICE: November 01, 2021 TIME: 12:44 PM PATIENT IDENTITY VERIFICATION COMPLETED USING TWO (2) IDENTIFIERS: Name and Date of confirmed by patient verbally. FALL SCREENING: Has the patient had 2 falls in the last year or 1 fall with injury or currently using an Ambulatory Assistive Device (Walker, Cane, Wheelchair, Crutches, etc.)? No PATIENT GENDER DATA: Male PATIENT RELEVANT IMPLANT DATA REVIEWED: Yes RADIOLOGY DEPARTMENT: General X-ray: Exam(s) Completed: Upper Extremity X-Ray(s): Forearm, right PERIPHERAL IV DATA: Not applicable SIGNED BY: RT Paulino(R) November 01, 2021 12:44 PM [facility] Progress note 11-01-2021 Note Date & Type Note Facility 11-01-2021 Note HNO ID: [id number] Author: Jada Vu APRN.INTERNATIONAL MARKETING COORDINATOR Service: ? Author Type: Nurse Practitioner Type: Progress Notes Filed: 11/01/2021 1:34 PM Note Text: Subjective Patient came in with complaints of arm pain in the right forearm. patient said it started about a month ago with no injury. patient said it has stayed consistently the same a 6/10 pain level. patient said nothing makes it worse or better including icing arm. Pain is located in between the elbow and wrist. patient denies any other symptoms such as tingling, shooting payne or loss of feeling. The history is provided by the patient. No coating technician was used. Review of Systems Constitutional: Negative. Skin: Negative. Objective Physical Exam Constitutional: Appearance: Normal appearance. Pulmonary: Effort: Pulmonary effort is normal. Musculoskeletal: Arms: Comments: Pain is located in area marked above. No abnormalities noted. Skin: Capillary Refill: Capillary refill takes less than 2 seconds. Neurological: Mental Status: He is alert. PAST MEDICAL HISTORY Diagnosis Date - Afib (HCC) No past surgical history on file. ALLERGIES Patient has no known allergies. MEDICATIONS cyclobenzaprine (FLEXERIL) 5 mg tablet Take 1 tablet by mouth three times daily as needed for Muscle Spasm. Atenolol-Chlorthalidone (TENORETIC 100) 100-25 mg per tablet Take 1 tablet by mouth once daily. No family history on file. Social History Tobacco Use - Smoking status: Never Smoker - Smokeless tobacco: Current User Types: Chew Substance Use Topics - Alcohol use: No - Drug use: No ASSESSMENT/PLAN: 1. Pain - ICD9: 780.96, ICD10: R52 - XR FOREARM GENERAL 2V AP/LAT RIGHT * * * * Physician Interpretation * * * * ? HISTORY: Pain Right radial sided proximal forearm pain x 1 month without known injury ? TECHNIQUE: 2 views ? COMPARISON: None ? RESULT: Bony structures appear intact. There is slight deformity of the distal ulna which may be due to remote healed fracture. ? IMPRESSION IMPRESSION: No acute findings ? Copyist: SUSANA Transcribe Date/Time: Nov 01 2021 12:58P ? Dictated by : SHYLA GAMING MD At this time patient is being referred to ortho due to pain for a month and no causative factor. Exam was negative here for casusative factors. Patient given Lidoderm patch's for pain. Patient is okay with this care plan. Jada Vu APRN.[facility] History of Present illness Narrative 11-01-2021 Jaad Vu APRN.[facility] - 11/01/2021 12:04 PM EDT Note Date & Type Note Facility 11-01-2021 History of Presen t illness Narrative Images from the original note were not included. Subjective Patient came in with complaints of arm pain in the right forearm. patient said it started about a month ago with no injury. patient said it has stayed consistently the same a 6/10 pain level. patient said nothing makes it worse or better including icing arm. Pain is located in between the elbow and wrist. patient denies any other symptoms such as tingling, shooting payne or loss of feeling. The history is provided by the patient. No coating technician was used. Review of Systems Constitutional: Negative. Skin: Negative. Objective Physical Exam Constitutional: Appearance: Normal appearance. Pulmonary: Effort: Pulmonary effort is normal. Musculoskeletal: Arms: Comments: Pain is located in area marked above. No abnormalities noted. Skin: Capillary Refill: Capillary refill takes less than 2 seconds. Neurological: Mental Status: He is alert. PAST MEDICAL HISTORY Diagnosis Date Afib (HCC) No past surgical history on file. ALLERGIES Patient has no known allergies. MEDICATIONS cyclobenzaprine (FLEXERIL) 5 mg tablet Take 1 tablet by mouth three times daily as needed for Muscle Spasm. Atenolol-Chlorthalidone (TENORETIC 100) 100-25 mg per tablet Take 1 tablet by mouth once daily. No family history on file. Social History Tobacco Use Smoking status: Never Smoker Smokeless tobacco: Current User Types: Chew Substance Use Topics Alcohol use: No Drug use: No ASSESSMENT/PLAN: 1. Pain - ICD9: 780.96, ICD10: R52 - XR FOREARM GENERAL 2V AP/LAT RIGHT * * * * Physician Interpretation * * * * HISTORY: Pain Right radial sided proximal forearm pain x 1 month without known injury TECHNIQUE: 2 views COMPARISON: None RESULT: Bony structures appear intact. There is slight deformity of the distal ulna which may be due to remote healed fracture. IMPRESSION IMPRESSION: No acute findings Copyist: SUSANA Transcribe Date/Time: Nov 01 2021 12:58P Dictated by : SHYLA GAMING MD At this time patient is being referred to ortho due to pain for a month and no causative factor. Exam was negative here for casusative factors. Patient given Lidoderm patch's for pain. Patient is okay with this care plan. Jada Vu APRN.[facility] documented in this encounter [facility] Progress note 01-22-2021 Note Date & Type Note Facility 01-22-2021 Note HNO ID: [id number] Author: Gila Cabrera APRN.[facility] Service: ? Author Type: Nurse Practitioner Type: Progress Notes Filed: 01/22/2021 3:29 PM Note Text: SUBJECTIVE Anand Nicholson is a 55 year old male who presents for asymptomatic COVID testing. He has had recent exposure to COVID at work. High risk category assessment Morbid Obesity (BMI>40) Exposures: Sick contacts? Yes Family or close contacts with confirmed/probable COVID-19 in last 14 days? Yes He reports that he has never smoked. His smokeless tobacco use includes chew. OBJECTIVE Physical Exam Vitals and nursing note reviewed. HENT: Mouth/Throat: Pharynx: Uvula midline. Cardiovascular: Rate and Rhythm: Normal rate and regular rhythm. Heart sounds: Normal heart sounds. Pulmonary: Effort: Pulmonary effort is normal. No respiratory distress. Breath sounds: Normal breath sounds. No wheezing or rales. Skin: General: Skin is warm and dry. Findings: No erythema or rash. Neurological: Mental Status: He is alert. ASSESSMENT/PLAN ASSESSMENT/PLAN: 1. At increased risk of exposure to COVID-19 virus - ICD9: V15.89, ICD10: Z91.89 - ASYMPTOMATIC ELECTIVE COVID-19 Gila Cabrera APRN.CNP - Does not meet symptom-based criteria for testing - COVID swab collected at time of office visit This patient encounter involved the screening or treatment of novel coronavirus infection (COVID-19). [facility] Evaluation note Note Date & Type Note Facility documented in this encounter [facility] Summary Purpose Family History No Family History Records FoundNo Family History Records Found Advance Directives No Advanced Directives Records FoundNo Advanced Directives Records Found Reason for Referral Specialty Diagnoses / Procedures Referred By Suzie toledo Referred To Contact Jada Vu APRN.INTERNATIONAL MARKETING COORDINATOR [address] [place] [address] Referral ID Status Reason Start Date Expiration Date Visits Re quested Visits Authorized [id number] Closed 1 1 Specialty Diagnoses / Procedures Referred By Suzie t Referred To Contact Orthopedics Diagnoses Pain Procedures CONSULT TO ORTHOPAEDICS OFFICE/OUTPATIENT [facility] 60-74 MINUTES Jada Vu APRN.INTERNATIONAL MARKETING COORDINATOR [address] [place] [address] Referral ID Status Reason Start Date Expiration Date Visits Requested Visits Authorized [id number] Authorized PCP Requested Referral 11/01/2021 11/01/2022 1 1 Specialty Diagnoses / Procedures Referred By Suzie toledo Referred To Contact XR IMAGING Diagnoses Pain Procedures XR FOREARM GENERAL 2V AP/LAT RIGHT RADEX FOREARM 2 VIEWS Jada Vu APRN.INTERNATIONAL MARKETING COORDINATOR [address] [place] [address] Xr Imaging Referral ID Status Reason Start Date Expiration Date V isits Requested Visits Authorized [id number] Closed Auto-Generate d Referral 11/01/2021 12/01/2022 1 1 Additional Source Comments (unrecognized sect ion and content) No Status Records FoundNo Status Records Found INFORMATION SOURCE (unrecogn ized section and content) DATE CREATED AUTHOR AUTHOR'S ORGANIZ ATION 12/18/2021 [facility] Source Comments (unrecognize d section and content) In the event this informatio n is protected by the Federal Confidentiality of Alcohol and Drug Abuse Patient Records regulations: The Federal rules restrict any use of the information to criminally investigate or prosecute any alcohol or drug abuse patient.[facility] the event this information is protected by the Federal Confidentiality of Alcohol and Drug Abuse Patient Records regulations: The Federal rules restrict any use of the information to criminally investigate or prosecute any alcohol or drug abuse patient.[facility] Reason for Visit (unrecogniz ed section and content) Reason Comments Appointment Care Teams (unrecognized sec tion and content) Telegraph Repeater Technician Relationship Specialty Start Date End Date Audi Leung MD [address] [place] [id number] PCP - General Family Practice 02/08/20 FOR RECORDS PERTAINING TO PATIENTS WHO ARE OR HAVE BEEN ENROLLED IN A CHEMICAL DEPENDENCY/SUBSTANCEABUSE PROGRAM, SOME INFORMATION MAY BE OMITTED. This clinical summary was aggregated from multiple sources. Caution should be exercised in using it in the provision of clinical care. This summary normalizes information from multiple sources, and as a consequence, information in this document may materially change the coding, format and clinical context of patient data. In addition, data may be omitted in some cases. CLINICAL DECISIONS SHOULD BE BASED ON THE PRIMARY CLINICAL RECORDS. [facility] [employer] [facility]. provides no warranty or guarantee of the accuracy or completeness of information in this document.
== END | disposition home or self-care (01) ==
LOC: LAB 13:05
PROVIDERS: PCP Family Medicine; Referring Provider Internal Medicine Cardiovascular Disease; Visit Provider Internal Medicine Cardiovascular Disease
DX: I10 Essential (primary) hypertension (principal); I48.91 Unspecified atrial fibrillation; R07.89 Other chest pain
CPT/HCPCS: 36415; 82565; 84520

== ENCOUNTER → 2023-06-19 | Outpatient (CLI) | payer OTHER, SELFPAY ==
--- OUTSIDE RECORDS SUMMARY | 2023-06-19 06:44 | XMS RPT_ITS | CCD ---
Author Name Unknown Address [address] [place] [address] Organization [facility] Care Team Providers Care Manager Civil Name Role Phone Madhu ALVARADO, Audi Capps Primary Care Provider Allergies Allergy Classification Reported Allergen(s) Allergy Type Date of Onset Reaction(s) Facility (1 source) ALLERGIES NOT ON FILE; Translations: [ALLERGIES NOT ON FILE] Propensity to adverse reactions (disorder) [facility] 2 Repository Medications Current Medications Medication Drug Class(es) Dates [...] Classification Problem Date Documented Da te Episodic/Chronic Heart valve disorders (4 sources) Nonrheumatic mitral (valve) insufficiency; Translations: [Nonrheumatic aortic (valve) stenosis] Onset: 06-06-2023 Chronic Nonspecific chest pain (2 sources) Other chest pain; Translations: [Other chest pain] Onset: 06-06-2023 Episodic Other nutritional; endocrine; and metabolic disorders (2 sources) Obesity, unspecified; Translations: [Obesity, unspecified] Onset: 06-06-2023 Chronic Residual codes; unclassified (1 source) Pain; Translations: [...] 11:54-0400 Body temperature 96.49 [degF] Jada Vu APRN.[employer]ILITY SUPERVISOR Work Phone: [facility] 11-01-2021 11:54-0400 Body weight 130.27 kg Jada Vu APRN.[employer]ACILITY SUPERVISOR Work Phone: [facility] 11-01-2021 11:54-0400 Diastolic blood pressure 88 mm[Hg] Jada Vu APRN.[employer]ACILITY SUPERVISOR Work Phone: [facility] 11-01-2021 11:54-0400 Heart rate 85 /min Jada Vu APRN.[employer]ACILITY SUPERVISOR Work Phone: [facility] 11-01-2021 11:54-0400 Respiratory rate 21 /min Jada Vu APRN.[employer]ACILITY SUPERVISOR Work Phone: [facility] 11-01-2021 11:54-0400 SaO2% (BldA) [Mass fraction] 100 % Jada Vu APRN.[employer]ACILITY SUPERVISOR Work Phone: [facility] 11-01-2021 11:54-0400 Systolic blood pressure 152 mm[Hg] Jada Vu APRN.[employer]ACILITY SUPERVISOR Work Phone: [facility] Encounters Encounter Date Encounter Type Care Provider Facility Start: 06-06-2023 End: 06-07-2023 ambulatory [facility] Start: 11-05-2021 Telephone encounter [facility] (Kelsey capellan) [facility] Procedures Date Procedure Procedure Detail Performing Clinician Start: 06-06-2023 CT ANGIO CHEST W AND WO IV CONTRAST CATHYALYSON POPEVELYN Plan of Treatment Date Care Activity Detail Author Start: 12-26-2021 Influenza vaccination INFLUENZA (#1) [facility] Start: 2021 PROSTATE CANCER SCRE ENING DISCUSSION PROSTATE CANCER SCREENING DISCUSSION [facility] Start: 05-20-2018 LIPID SCREEN LIPID SCREEN [facility] Start: 06-07-2017 DIABETES SCREEN DIABETES SCREEN [facility] Start: 2016 SHINGRIX VACCINE (1 of 2) SHINGRIX V ACCINE (1 of 2) [facility] Start: 08-19-2011 COLOGUARD (FIT-DNA) COLOGUARD (FIT-D NA) [facility] Start: 08-19-2011 Colonoscopy COLONOSCOPY [facility] Start: 08-19-2011 COLORECTAL CANCER SCREENING COLORECTAL CANCER SCREENING [facility] Start: 08-19-[address] COLONOGRAPHY [facility] Start: 08-19-2011 FECAL OCCULT BLOOD FECAL OCCULT BLOO D [facility] Start: 08-19-2011 SIGMOIDOSCOPY SIGMOIDOSCOPY [facility] Start: 1985 Urine microalbumin profile DTAP,TDAP ,TD (1 - Tdap) [facility] Start: 1984 HEPATITIS C SCREENING HEPATITIS C SC REENING [facility] Start: 1984 HIV SCREENING HIV SCREENING [facility] Start: 1978 Adult depression [facility] assessment DEPRESSION SCREENING [facility] Payers Date Payer Category Payer Unknown [id number] 2019 Unknown PATY KNOWLES SS PPO [id number] 2019-Present [phone] [facility] [id number] [place] [address] PPO [id number] 1966 Unknown [id number] Social History Date Type Detail Facility Start: 11-12-2012 Tobacco smoking stat us WAIS Never smoked tobacco [facility] Start: 11-12-2012 Tobacco use and exposure User of smo keless tobacco [facility] History of tobacco use Chews Tobacco [facility] Start: 11-01-2021 Alcohol intake 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 He wants to know what went on during Pts visit. He states Pt has an appointment that was made in [place], he wants Pt to have an appointment local. Called [facility] and they will call back. documented in this encounter [facility] Progress note 11-01-2021 Note Date & Type Note Facility 11-01-2021 Note HNO ID: [id number] Author: RT Paulino(R) Service: Radiology Author Type: [...] RT Paulino(R) November 01, 2021 12:44 PM [facility] Progress note 11-01-2021 Note Date & Type Note Facility 11-01-2021 Note HNO ID: [id number] Author: Jada Vu APRN.[employer]ILITY SUPERVISOR Service: ? Author Type: Nurse Practitioner Type: [...] history is provided by the patient. No paperhanger assistant was used. Review of Systems Constitutional: Negative. [...] ? IMPRESSION IMPRESSION: No acute findings ? Executive Cyber Leader: SUSANA Transcribe Date/Time: Nov 01 2021 12:58P ? Dictated by : SHYLA GAMING MD At this time patient is being referred to ortho due to pain for a month and no causative factor. Exam was negative here for casusative factors. Patient given Lidoderm patch's for pain. Patient is okay with this care plan. Jada Vu APRN.SANDY [facility] History of Present illness Narrative 11-01-2021 Jada Vu APRN.[employer] FACILITY SUPERVISOR - 11/01/2021 12:04 PM EDT Note Date [...] history is provided by the patient. No paperhanger assistant was used. Review of Systems Constitutional: Negative. Skin: Negative. Objective Physical Exam Constitutional: Appearance: Normal appearance. Pulmonary: Effort: Pulmonary effort is normal. Musculoskeletal: Arms: Comments: Pain is located in area marked above. No abnormalities noted. Skin: Capillary Refill: Capillary refill takes less than 2 seconds. Neurological: Mental Status: He is alert. PAST MEDICAL HISTORY Diagnosis Date Afib ([facility]) No past surgical history on file. ALLERGIES [...] healed fracture. IMPRESSION IMPRESSION: No acute findings Executive Cyber Leader: SUSANA Transcribe Date/Time: Nov 01 2021 12:58P Dictated by : SHYLA GAMING MD At this time patient is being referred to ortho due to pain for a month and no causative factor. Exam was negative here for casusative factors. Patient given Lidoderm patch's for pain. Patient is okay with this care plan. Jada Vu APRN.SANDY documented in this encounter [facility] Progress note 01-22-2021 Note Date & Type Note Facility 01-22-2021 Note HNO ID: [id number] Author: Gila Cabrera APRN.CNP Service: ? Author Type: Nurse Practitioner Type: [...] or treatment of novel coronavirus infection (COVID-19). [facility] Evaluation note Note Date & Type Note Facility documented in this encounter [facility] Summary Purpose Family History No Family History Records FoundNo Family History Records FoundNo Family History Records Found Advance Directives No Advanced Directives Records FoundNo Advanced Directives Records FoundNo Advanced Directives Records Found Reason for Referral Specialty Diagnoses / Procedures Referred By Contac t Referred To Contact Jada Vu APRN.[employer] FACILITY SUPERVISOR [address] [place] [address] Referral ID Status Reason Start Date Expiration Date Visits Re quested Visits Authorized [id number] Closed 1 1 Specialty Diagnoses / Procedures Referred By Contac t Referred To Contact Orthopedics Diagnoses Pain Procedures CONSULT TO ORTHOPAEDICS OFFICE/OUTPATIENT [facility] 60-74 MINUTES Jada Vu APRN.[employer] FACILITY SUPERVISOR [address] [place] [address] Referral ID Status Reason Start Date Expiration Date Visits Requested Visits Authorized [id number] Authorized PCP Requested Referral 11/01/2021 11/01/2022 1 1 Specialty Diagnoses / Procedures Referred By Contac t Referred To Contact XR IMAGING Diagnoses Pain Procedures XR FOREARM GENERAL 2V AP/LAT RIGHT RADEX FOREARM 2 VIEWS Jada Vu APRN.[employer]ACILITY SUPERVISOR [address] [place] [address] Xr Imaging Referral ID Status Reason Start Date Expiration Date V isits Requested Visits Authorized [id number] Closed Auto-Generate d Referral 11/01/2021 12/01/2022 1 1 Additional Source Comments (unrecognized sect ion and content) No Status Records FoundNo Status Records FoundNo Status Records Found INFORMATION SOURCE (unrecogn ized section and content) DATE CREATED AUTHOR AUTHOR'S ORGANIZ ATION 12/18/2021 [facility] DATE CREATED AUTHOR AUTHOR'S ORGANIZ ATION 06/11/2023 [facility] Source Comments (unrecognize d section and content) In the event this informatio n is protected by the Federal Confidentiality of Alcohol and Drug Abuse Patient Records regulations: The Federal rules restrict any use of the information to criminally investigate or prosecute any alcohol or drug abuse patient[facility] the event this information is protected by the Federal Confidentiality of Alcohol and Drug Abuse Patient Records regulations: The Federal rules restrict any use of the information to criminally investigate or prosecute any alcohol or drug abuse patient.[facility] Reason for Visit (unrecogniz ed section and content) Reason Comments Appointment Care Teams (unrecognized sec tion and content) Manager Civil Relationship Specialty Start Date End Date Audi Leung MD [address] [place] [id number] PCP - General Family Practice 02/08/20 FOR [...] BE BASED ON THE PRIMARY CLINICAL RECORDS. [employer] [facility]. provides no warranty or guarantee of the accuracy or completeness of information in this document.
--- NOTE | 2023-06-25 13:02 | STRESSREP ---
Stress Test Report Date: 06/19/2023 Procedure: Pharmacologic stress nuclear imaging study Indications: Chest pain Consent: Per the patient Procedure: The patient underwent pharmacologic (Regadenoson 0.4mg ) evaluation with a peak heart rate of 122 beats per minute (74%predicted maximal heart rate) and a peak blood pressure of 162/86 mmHg. The baseline ECG demonstrated atrial fibrillation. The peak pharmacologic ECG demonstrated no ischemic changes. There were no cardiac dysrhythmias pretest, during pharmacologic infusion, or recovery. There was no complaint of chest discomfort during pharmacologic infusion or recovery. The patient was injected with 14.9 millicuries of technetium 99m Cardiolite and subsequently rest SPECT Cardiolite nuclear imaging was obtained in the horizontal long, vertical long, and short axis views. The patient underwent pharmacologic (Regadenoson) evaluation. The patient was injected with 44.7 millicuries of technetium 99m Cardiolite and subsequently stress SPECT Cardiolite nuclear imaging was obtained in the horizontal long, vertical long, and short axis views. A gated Cardiolite study at peak stress was obtained. The examination was stopped secondary to completion of protocol. Rest and stress SPECT Cardiolite nuclear imaging status post realignment, normalization, and attenuation correction demonstrate no fixed or reversible perfusion defects. There is end systolic thickening and brightening. The gated Cardiolite study demonstrates myocardial thickening and inward wall motion. The reported LVEF is 51%. Impression: 1. Pharmacologic (Regadenoson) evaluation 2. Peak pharmacologic ECG with no ischemic changes. 3. Baseline atrial fibrillation. 5. Rest and stress SPECT Cardiolite nuclear imaging demonstrate relative uniform tracer uptake and myocardial perfusion appearing within normal limits. 6. The gated Cardiolite study reports an LVEF of 51%. The LV appears mildly dilated. This note was generated with [employer] ([employer]ation software. It may contain incorrect words, spelling, and punctuation that were not noted in checking the note before signing.
== END | disposition home or self-care (01) ==
PROVIDERS: PCP Family Medicine; Referring Provider Internal Medicine Cardiovascular Disease; Visit Provider Internal Medicine Cardiovascular Disease
DX: I10 Essential (primary) hypertension (principal); I48.91 Unspecified atrial fibrillation; I08.0 Rheumatic disorders of both mitral and aortic valves; F70 Mild intellectual disabilities; R07.89 Other chest pain
CPT/HCPCS: 78452; 93017; A9500; A4216; J2785

== ENCOUNTER → 2023-07-14 | Outpatient (CLI) | payer OTHER, SELFPAY ==
--- NOTE | 2023-07-14 16:21 | RAD_ITS ---
STUDY: X-RAY - LUMBOSACRAL SPINE REASON FOR EXAM: Male, 57 years old. Intervertebral disc degeneration TECHNIQUE: 6 view(s) of the lumbosacral spine were obtained including flexion and extension views and oblique views.. COMPARISON: None FINDINGS: Normal lumbar lordosis. There is no substantial scoliosis. There is normal alignment of the vertebrae. There is multilevel endplate spondylosis of the lumbar vertebrae. There is multi-level degenerative disc disease with multi-level disc space narrowing. Facet joint osteoarthritis. Normal bilateral sacral ala, sacroiliac joints, and visualized sacrum. Normal visualized soft tissue structures. RAD/L/S Spine w Bend Min 6 Vw IMPRESSION: Degenerative changes of the spine, as detailed above. Electronically Signed: Holger Chan MD at 14:24 EDT ,
== END | disposition home or self-care (01) ==
LOC: MTRAD 16:18
PROVIDERS: PCP Family Medicine; Referring Provider Family Medicine; Visit Provider Family Medicine
DX: M51.36 Other intervertebral disc degeneration, lumbar region (principal)
CPT/HCPCS: 72114

== ENCOUNTER 2023-08-25 15:30 | Outpatient (RCR) | payer OTHER, SELFPAY ==
--- NOTE | 2023-07-27 19:19 | HP.PTEVAL_ITS ---
Patient's Visit Information Visit Information Visit Information: ROSSY PEREZ is a 57 year old M referred to Physical Therapy by Dr. Wilmer Leung MD with a diagnosis of DEGENRRATIVE CHANGES. Date of Evaluation: 07/27/23 Physical Therapist: Horace Flores, PT, Cert MDT, OCS Visit Plan Frequency: 2x /Week Duration: 4 Weeks Plan: PT INTERVENTIONS DLS ,YUE EX'S ,POSTURAL EX'S ,POSTURE/BODY MECHANICS AND MODLALTIES Subjective Subjective: This 55 y/o male presents to physical therapy for lumbar pain . Patient has had pain many years. Patient symptoms wore past [address] Leung recommended PT and did x-rays DDD. Patient pain located symmetrical lumbar pain and cervical. Patient pain described as intermittent sharp pain Aggravating factors sitting ,resting in bed .periods of time ,bending over. Alleviating rest. Patient has some paresthesia in legs. Coughing/sneezing + . Bowel/bladder -. Sleeping okay at night. Patient pain affects QOL and function .Goals to to decrease pain. 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 SOCAIL: single Pain Bilateral Back: Pain Intensity (Out of 10): 8 Pain Intensity Range: 10 Objective Objective: POSTURE: mild forward posture NEURO: c/o paresthesia/tingling in legs PALPATION: unremarkable SYMMETRIES: align GAIT: reciprocal pattern mild forward posture LUMBAR ROM: flexion min loss ,extension min loss ,side glides min loss FLEXABILITY: hamstrings min tight loss MMT: quads/hamstrings 4/5 ,hip flexion 4-/5 ,hip abd 4-/5 ankle 4/5 Special Tests L/S Slump test left side: Negative L/S Slump test right side: Negative L/S Left Straight Leg Raise: Negative L/S Right Straight Leg Raise: Negative Balance/Special Test Scores Oswestry Low Back Score: 29 Goals Goal 1:: I with HEP for back Goal Time Frame: 4-6 Weeks Goal 2:: Patient to demonstrate 50% improvement with increase function and less pain Goal Time Frame: 4-6 Weeks Goal 3:: Patient to improve back oswestry score by 5 points to improve QOL and function Goal Time Frame: 4-6 Weeks Goal 4:: Patient to improve lumbar ROM for function of recovery for lifting Goal Time Frame: 4-6 Weeks Goal 5:: Patient to improve posture/body 80 % of the time Goal Time Frame: 4-6 Weeks Rehabilitation Potential Physical Therapy Diagnosis: This patient has lumbar pain with possible d erangement with pain with positioning and motion testing affects ADLS an job demands thus benefit from skilled PT Rehabilitation Potential: Good Anticipated Interventions Patient/Client Instruction: Educate patient on: Condition and Plan of Care For the Purpose of:: To decrease pain, To increase ROM, To improve muscle performance and motor function, To improve ability to perform ADL's, To increase tolerance to activity/condition/position, To improve ability of physical actions for home/community/work/leisure, To improve health of tissue, To decrease soft tissue restriction and To increase flexibility/ROM Therapeutic Exercise to Include: Body mechanics, Postural training, Flexibilty training and Dynamic Lumbar Stabilization For the Purpose of:: To decrease pain, To increase ROM, To improve muscle performance and motor function, To improve ability to perform ADL's, To increase tolerance to activity/condition/position, To decrease level of supervision to perform tasks, To improve gait and locomotor functions, To improve health of tissue, To decrease soft tissue restriction and To reduce risk of recurrence Text: Thank you for the opportunity to evaluate your patient. For Medicare and Medicare HMO plans, please review the plan of care and approve it. It will need to be FAXED BACK to us at [phone] for Medicare purposes. For Medicare only, by signing this I certify the plan of care. Please let me know if there are questions or concerns regarding this plan of care. Physician Signature: Date:
--- NOTE | 2023-08-25 15:59 | HP.PTDCSUM ---
Discharge Summary D/C summary: It has been my pleasure to treat ROSSY PEREZ referred by Dr. Audi Leung MD, with the diagnosis of DEGENRRATIVE CHANGES for a total of 9 visit(s). Discharge Date: 08/25/23 Please see the following information for a summary of their discharge status. Subjective Subjective: Doing well ready for d/c ..doing well Pain Bilateral Back: Pain Intensity (Out of 10): 0 Overall Improvement % Improvement: 100 Objective Objective/Function: POSTURE: mild forward posture NEURO: c/o paresthesia/tingling in legs PALPATION: unremarkable SYMMETRIES: align GAIT: reciprocal pattern LUMBAR ROM: flexion min loss ,extension min WFL ,side glides min loss FLEXABILITY: hamstrings min tight loss MMT: quads/hamstrings 5/5 ,hip flexion 4/5 ,hip abd 4/5 ankle 4/5 Goals Goal 1:: I with HEP for back Goal Progress: Goal Met Goal 2:: Patient to demonstrate 50% improvement with increase function and less pain Goal Progress: Goal Met Goal 3:: Patient to improve back oswestry score by 5 points to improve QOL and function Goal Progress: Goal Met Goal 4:: Patient to improve lumbar ROM for function of recovery for lifting Goal 5:: Patient to improve posture/body 80 % of the time Goal Progress: Goal Met Plan Plan: D/C D/C Information Discharge Comments: HEP d/c sentence: If there are questions or concerns regarding this patient's physical therapy, please feel free to call me at [phone]. Thank you for the referral of this patient. Sincerely, Horace Flores, PT, Cert MDT, OCS Balance/Gait/Functional tests Balance/Special Test Scores Oswestry Low Back Score: 1 Improvement % Improvement: 100
== END 2023-08-25 19:00 | disposition home or self-care (01) ==
LOC: PT 15:30
PROVIDERS: PCP Family Medicine; Visit Provider Family Medicine
DX: M51.36 Other intervertebral disc degeneration, lumbar region (principal)
CPT/HCPCS: 97110; 97162; 97530

== ENCOUNTER → 2023-09-17 | Outpatient (CLI) | payer OTHER, SELFPAY ==
[2023-09-17 17:43] LABS: Absolute Lymphocyte Count 2.05 X10^3/uL (0.83-4.51); Absolute Neutrophil Count 5.5 X10^3/uL (2.0-7.7); Basophil# 0.04 X10^3/uL; Basophil% 0.5 % (0-1); Eosinophils% 2.3 % (0-5); Hematocrit 46.4 % (40-54); Hemoglobin 15.4 g/dL (13.0-16.5); Lymphocyte # 2.05 X10^3/ul (0.83-4.51); Lymphocyte % 23.5 % (19-41); Mean Corp Hgb Conc 33.2 g/dL (32-36); Mean Corpuscular Hgb 31.6 pg (27.0-32.0); Mean Corpuscular Volume 95.1 fL (80-94); Mean Platelet Vol. 10.7 fl (6.2-12.0); Monocyte# 0.86 X10^3/uL; Monocyte% 9.9 % (0-10); NRBC Flagged by Analyzer 0 % (0-5); Neutrophil # 5.52 X10^3/uL (2.7-7.7); Neutrophil % 63.3 % (47-70); Platelet Count 251 K/mm3 (150-450); RBC Distribution Width CV 13.1 % (11.6-14.6); RBC Distribution Width SD 45.8 fl (35.1-43.9); Red Blood Count 4.88 M/mm3 (4.6-6.2); White Blood Count 8.7 K/mm3 (4.4-11.0)
[2023-09-17 18:14] LABS: Anion Gap 8 (5-15); BUN 24 mg/dL (7-18); BUN/Creat Ratio 25.8 RATIO (10-20); Calcium,Total 9.4 mg/dL (8.5-10.1); Chloride 107 mmol/L (98-107); Creatinine, Serum 0.93 mg/dL (0.70-1.30); EST Glomerular Filtration Rate 89 mL/min (>60); Est Glom Filt Rate - Afr Amer 108 mL/min (>60); Glucose 107 mg/dL (74-106); Potassium 3.7 mmol/L (3.5-5.1); Sodium Level 139 mmol/L (136-145)
== END | disposition home or self-care (01) ==
LOC: MFPLAB 16:18
PROVIDERS: PCP Family Medicine; Visit Provider Nurse Practitioner Family
DX: R42 Dizziness and giddiness (principal)
CPT/HCPCS: 36415; 80048; 85025

== ENCOUNTER 2023-12-30 12:45 | Emergency (ER) | payer OTHER, SELFPAY ==
[2023-12-30 12:46] VITALS: BP 162/104; PULSE 102; RESP 18; TEMP 36.9; O2SAT 96; BMI 42.3
--- NOTE | 2023-12-30 13:03 | CT_ITS ---
STUDY: CT BRAIN WITHOUT CONTRAST REASON FOR EXAM: Male, 58 years old. Injury/Pain RADIATION DOSAGE (If Supplied By Facility): CTDIvol = ( 47.06 ) mGy, DLP = ( 907.97 ) mGycm TECHNIQUE: Transaxial CT imaging of the brain was performed without administration of intravenous contrast material. Individualized dose optimization techniques were used for this CT. COMPARISON: Comparison is made with prior study dated December 23, 2017. FINDINGS: Normal soft tissue structures. Normal calvarium. Normal size ventricles and extra-axial spaces for the patient''s age. Normal white matter tracts of the cerebral hemispheres. Normal basal ganglia and thalami. Normal brainstem. Normal cerebellum. There is no intracranial hemorrhage. There are no findings of an acute ischemic infarction. There is a 1.5 cm polyp or retention cyst at the base of the left maxillary sinus. CT/Brain/Head without Contrast IMPRESSION: Normal unenhanced CT scan of the brain. Electronically Signed: Holger Chan MD at 13:48 EDT ,
--- NOTE | 2023-12-30 13:04 | CT_ITS ---
STUDY: CT CERVICAL SPINE WITHOUT CONTRAST REASON FOR EXAM: Male, 58 years old. Injury/Pain RADIATION DOSAGE (If Supplied By Facility): CTDIvol = ( 18.61 ) mGy, DLP = ( 437.74 ) mGycm TECHNIQUE: High resolution transaxial imaging was performed without contrast material. Sagittal and coronal images were reconstructed. Individualized dose optimization techniques were used for this CT. COMPARISON: Comparison is made with prior study December 23, 2017. FINDINGS: Normal craniovertebral junction. Normal anterior atlantoaxial articulation. Normal odontoid process. There is straightening of the normal cervical lordosis. Normal vertebral bodies and posterior osseous elements. C2-3: Anterior spondylosis. The disc space is relatively well maintained. C3-4: Mild degree of joint space narrowing. Spondylosis. Uncovertebral arthrosis. Moderate degree of bilateral neural foraminal stenosis. C4-5: Anterior spondylosis. Minimal bilateral neural foraminal stenosis. C5-6: Anterior spondylosis. No significant stenosis seen. C6-7: Normal endplates. Normal disc height and morphology. Normal central canal and intervertebral neuroforamina. C7-T1: Normal endplates. Normal disc height and morphology. Normal central canal and intervertebral neuroforamina. Normal visualized soft tissue structures. CT/Spine Cervical without Contras IMPRESSION: Multilevel degenerative changes, as described above. Electronically Signed: Holger Chan MD at 13:51 EDT ,
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
--- NOTE | 2023-12-30 13:13 | RAD_ITS ---
STUDY: X-RAY - LEFT SHOULDER REASON FOR EXAM: Male, 58 years old. Injury/Pain TECHNIQUE: 3 view(s) of the shoulder. COMPARISON: None. FINDINGS: Normal glenohumeral articulation. There is hypertrophic osteoarthrosis of the acromioclavicular joint with inferior osseous spur formation. Normal acromion. Normal humeral head and visualized proximal humerus. The soft tissue structures are unremarkable. Normal visualized pulmonary apex. 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 Electronically Signed: Holger Chan MD at 13:43 EDT ,
[2023-12-30] MEDS: Morphine 4 MG/ML Syringe IM (13:45)
[2023-12-30 14:46] VITALS: BP 125/95; PULSE 118; RESP 25; O2SAT 95
[2023-12-30 14:53] VITALS: BP 125/95; PULSE 118; RESP 25; TEMP 36.6; O2SAT 95
== END 2023-12-30 14:54 | disposition home or self-care (01) ==
PROVIDERS: Emergency Provider Emergency Medicine; PCP Family Medicine; Visit Provider Emergency Medicine
DX: S16.1XXA Strain of muscle, fascia and tendon at neck level, initial encounter (principal); I48.91 Unspecified atrial fibrillation; Y92.410 Unspecified street and highway as the place of occurrence of the external cause; F17.220 Nicotine dependence, chewing tobacco, uncomplicated; I10 Essential (primary) hypertension; V43.52XA Car driver injured in collision with other type car in traffic accident, initial encounter; W22.10XA Striking against or struck by unspecified automobile airbag, initial encounter; Z79.899 Other long term (current) drug therapy; Z79.82 Long term (current) use of aspirin
CPT/HCPCS: 70450; 72125; 73030; 96372; 99282